=== PATIENT | female | born 1970 ===

== ENCOUNTER 2025-04-15 19:07 | Outpatient (REF) | payer OTHER, SELFPAY ==
--- OUTSIDE RECORDS SUMMARY | 2024-12-12 17:30 | XMS_ITS ---
Author Organization [facility] Address [address] [address] Care Team Providers Care General Internal Medicine Doctor Name Role Phone KIMBERLY MCPHERSON MD Primary Care Provider UnavailBrissa Javier Unavailable [phone] Migration, Provider Unavailable Unavailable REASON FOR VISIT Multum To Medispan Conversion Encounter Medications Medication SIG (Take, Route, Frequency, Duration) Notes Start Date End Date Status Clenpiq 12 G-3.5 G-10 MG/160 ML 160 ML ORALLY TWICE; Duration: 1 DAYS *Please review and pick correct strength-formulation from Medispan options. If intended option is not shown, discontinue and re-order from Quick Search* 01/06/2023 Active Clenpiq 12 G-3.5 G-10 MG/160 ML 160 ML ORALLY TWICE; Duration: 1 DAYS *Please review and pick correct strength-formulation from Medispan options. If intended option is not shown, discontinue and re-order from Quick Search* 03/05/2022 Active Encounters Encounter Location Date Provider Diagnosis [facility] [address] [address] 12/12/2024 Provider Migration Plan Of Treatment Medication Medication Name Sig Start Date Stop Date Notes Clenpiq 12 G-3.5 G-10 MG/160 ML 160 ML ORALLY TWICE; Duration: 1 DAYS 01/06/2023 *Please review and p ick correct strength-formulation from Medispan options. If intended option is not shown, discontinue and re-order from Quick Search* Clenpiq 12 G-3.5 G-10 MG/160 ML 160 ML ORALLY TWICE; Duration: 1 DAYS 03/05/2022 *Please review and p ick correct strength-formulation from Medispan options. If intended option is not shown, discontinue and re-order from Quick Search* Progress Notes * RAEANN TELLEZDOB:1970 ( 54 yo F)Acc No.[id number]:12/12/2024 Patient: RAEANN VÁZQUEZ Provider: :1970 A ge:54 Y S ex:Female Date:12/12/2024 Address:[address] [place], [place] [phone] Pcp:KIMBERLY MCPHERSON MD Subjective: * Chief Complaints: * 1 . Multum To Medispan Conversion Encounter. * Medical History: Objective: * Vitals: Assessment: Plan: * Treatment: * * Electronic signature of Prov ider Migration on 04/15/2025 at 09:25 AM EDT Sign off status: Pending * Provider: Date: 12/12/2024 Generated for Sabine garcia/Moy/Sarahysmitting on: 04/15/2025 09:25 AM EDT
--- OUTSIDE RECORDS SUMMARY | 2025-04-12 13:45 | XMS_ITS | Encounter Summary ---
Author Organization [facility] Address [address] [place] [address] Care Team Providers Care Case Sealer Name Role Phone Rachel Romo MD Primary Care Provider [phone] Reason for Visit * Reason Comments Post-op * Consultation (Routine) - Authorized Specialty Diagnoses / Procedures Referred By Contac t Referred To Contact Orthopedic Surgery / Orthopaedic Surgery Diagnoses left trimalleolar ankle ORIF (Dr. Candelaria 09/08/24), ED 03/26, I&D/AIDEN 03/26 (Felipe) per Dr. Wang Procedures [place] POST-OP FOLLOW-UP VISIT POST OP [facility] Financial Clearance Department [address] [place] [address] Phone: tel: fax: Darien Bush MD [address] [place] [phone] Phone: tel: fax: Referral ID Status Reason Start Date Expiration Date V isits Requested Visits Authorized [id number] Authorized 04/08/2025 04/07/2026 6 6 Encounter Details Date Type Department Care Team (Late st Contact Info) Description 04/12/2025 1:45 PM EDT Follow-Up [facility] [address] [place] [address] Eli Ba PA [address] [place] [address] Closed nondisplaced trimalleolar fracture of left ankle with routine healing, subsequent encounter (Primary Dx); Dehiscence of operative wound, subsequent encounter Social History Tobacco Use Types Packs/Day Years Used Date Smoking Tobacco: Never Smokeless Tobacco: Never Alcohol Use Standard Drinks/Week Comments Yes 2 (1 standard drink = 0.6 oz pur e alcohol) weekend Hunger Vital Sign Answer Date Recorded Within the past 12 months, y ou worried that your food would run out before you got the money to buy more. Never true 03/26/20 25 Within the past 12 months, t he food you bought just didn't last and you didn't have money to get more. Never true 03/26/2025 [facility] Utilities Answer Date Recorded In the past 12 months has th e electric, gas, oil, or water company threatened to shut off services in your home? No 03/26/2025 Transportation Answer Date Recorded In the past 12 months, has l ack of reliable transportation kept you from medical appointments, meetings, work or from getting things needed for daily living? No 03/26/2025 Housing Answer Date Recorded Housing Risk Low 2 03/26/2025 Housing Risk Medium Not on file 03/26/2025 Housing Risk High Not on file 03/26/2025 What is your living situation today? LSSTEADY 03/26/2025 Comments No Sex and Gender Information Value Date Recorded Sex Assigned at Female 11/19/2022 8:44 AM EDT Legal Sex Female 3:56 AM EDT Gender Identity Female 11/19/2022 8:44 AM EDT Sexual Orientation Straight 11/19/2022 8: 44 AM EDT documented as of this encounter Progress Notes * Lc Braxton MA - 04/12/2025 1:45 PM EDT Procedures Bianca Cantu : 1970 CSN: [id number] * Lc Braxton MA - 04/12/2025 1:45 PM EDTAssociated Order(s): Casting Pre-Procedure Diagnose(s): Closed nondisplaced trimalleolar fracture of left ankle with routine healing, subsequent encounter Casting Date/Time: 04/12/2025 1:45 PM Performed by: Lc Braxton MA Authorized by: Kenia Oneil NP Consent: Patient identity confirmed: Name and with patient and Verbally Verbal consent obtained: Yes Written consent obtained: No Risk and benefits discussed: Yes Written informed consent was obtained from the patient. Patient states understanding of procedure being performed: Yes Patient's understanding of procedure matches consent: Yes Injury: Location details: left lower leg Pre-procedure assessment neurovascularly intact Skin Assessment: Nikep/Warm/Dry, Intact and Circulation, Sensation, and Modility Intact Procedure: Manipulation performed? No Stress Test Performed: No Ultrasound Stimulation: No Removal of short leg Supplies used: cotton padding and plaster Post-procedure assessment: neurovascularly intact Patient tolerance: patient tolerated the procedure well with no immediate complications Bianca Cantu : 1970 CSN: [id number] * ZULAY James - 04/12/2025 1:33 PM EDT Date of Visit: 04/12/2025 Date of Surgery: 03/26/2025 Procedure: I&D and removal of hardware left ankle with Dr. Wang 09/08/2024-ORIF left trimalleolar ankle fracture with Dr. Candelaria History of Present Illness: Bianca Cantu is here today for evaluation after the above procedure. She presents today from home [facility] with her at bedside. Reports doing well after most recent surgery. Notes that she has continued on the aspirin twice daily for DVT prophylaxis, along with her Ancef for antibiotic treatment as prescribed. She notes she has maintained her weightbearing precautions, is hopeful that her wound VAC will be removed and inquires how her incision looks today. She reports her pain hasbeen well-tolerated. She otherwise inquires if she can return to work maintaining her weightbearingprecautions using the knee scooter. Denies fever, chills, cough, shortness of breath, chest pain, calf pain/tenderness. Denies numbness, paresthesias distally. Physical Exam: General: A&Ox 3, well appearing, NAD HEENT: NCAT, EOMI Pulm: respirations unlabored on room air Left ankle: Short leg splint removed for examination. Prevena VAC removed over the lateral incision, incision sites appear to be healing well. Lateral incision site appears to be mildly macerated, skin edges well-approximated. Medial incision site appears to be well-healed. No evidence of erythema,drainage, wound dehiscence, or signs of acute infection. Mild to moderate swelling about the ankle.Otherwise, skin is pink, warm, dry, and intact without lesions or rashes. No obvious visible deformity. Mildly tender to palpation over incision sites. Otherwise, bony landmarks of the foot, ankle, and knee are NT to palpation. Thigh and calf are soft, NT, ND. ROM of the ankle limited secondary to s tiffness. FROM of the knee. Wiggles toes. Presenting today on knee scooter. NVI with SILT throughout DP/SP/S/S nerve distributions. Brisk cap refill, less than 2 sec Imaging: Deferred Assessment + Plan: Bianca Cantu is here today for 2-week follow up after most recent I&D and removal of hardware left ankle with Dr. Wang for surgical site infection. Clinically appears to be doing well postoperatively. On exam, incisions over the medial portion appear well-healed. Sutures removed from the medial ankle. Incision over the lateral ankle appears mildly macerated, skin edges well-approximated. Eldena were left in place at this time to allow for continued healing. Patient was placed back into a short leg splint. We reviewed today's imaging and discussed the typical rehab plan/prognosis in detail. Deep Vein Thrombosis Prophylaxis: The patient should remain on aspirin 81mg BID for a total of 12 weeks after surgery to prevent blood clots Weightbearing Instructions: Patient is NWB LLE in splint Physical Therapy: Deferred at this time Continue cefazolin as prescribed for antibiotic treatment Pain: We discussed continuing to manage their pain with over the counter pain medication (acetaminophen and ibuprofen) as needed. Return to clinic: 1 week for splint off, skin check, no x-rays at that time documented in this encounter Plan of Treatment Upcoming Encounters Date Type Department Care Team (Late st Contact Info) Description 04/20/2025 3:30 PM EDT Follow-Up [facility] [address] [place] [address] Eli Ba PA [address] [place] [phone] 04/23/2025 1:00 PM EDT Follow-Up [facility] [address] [place] [address] Sage Candelaria MD [address] [place] [address] 04/26/2025 3:45 PM EDT Office Visit [facility] storage battery charger [address] [place] [phone] Eli Leo MD [address] [place] [address] documented as of this encounter Procedures * Due to [place] state law, this organization might not be sharing negative HIV tests. Procedure Name Priority Date/Time Associated Diagnosis Comments HC SC SHORT LEG SPLINT Routine 04/12/2025 1:45 PM EDT Closed nondisplaced trimalleolar fracture of left ankle with routine healing, subsequent encounter [place] REMV/REVISN BOOT/BODY CAST Routine 04/12/2025 1:45 PM EDT Closed nondisplaced trimalleolar fracture of left ankle with routine healing, subsequent encounter documented in this encounter Visit Diagnoses Diagnosis Closed nondisplaced trimalleolar fracture of left ankle with routine healing, subsequent encounter- Primary Dehiscence of operative wound, subsequent encounter documented in this encounter Care Teams Case Sealer Relationship Specialty Start Date End Date Rachel Romo MD [address] [place] [phone] PCP - General Family Medicine 08/02/21 documented as of this encounter
--- OUTSIDE RECORDS SUMMARY | 2025-04-15 09:30 | XMS_ITS | Encounter Summary ---
Author Organization [facility] Address [address] [place] [address] Care Team Providers Care Marker Delivery Name Role Phone Rachel Romo MD Primary Care Provider [phone] Reason for Visit * Consultation (Routine) - Authorized Specialty Diagnoses / Procedures Referred By Contac t Referred To Contact Infectious Diseases Diagnoses FU inpt-left ankle hardware infection [facility] [address] [place] [address] Phone: tel: fax: Referral ID Status Reason Start Date Expiration Date V isits Requested Visits Authorized [id number] Authorized 04/12/2025 10/12/2026 6 6 Encounter Details Date Type Department Care Team (Late st Contact Info) Description 04/15/2025 9:30 AM EDT Telehealth [facility] [address] [place] [address] Sql Application Developer: [place] [address] Subacute osteomyelitis of left ankle (HCC) (Primary Dx) Social History Tobacco Use Types Packs/Day Years [...] money to get more. Never true 03/26/2025 [facility] Utilities Answer Date Recorded In the [...] as of this encounter Progress Notes * Papito Gayle MD - 04/15/2025 6:01 PM EDT Infectious Disease Outpatient Follow-Up Date of service: 04/15/25 Reason for follow-up: Left ankle hardware infection/osteomyelitis I performed this visit using real-time telehealth tools, including a live audio video connection between my office in [place] and the patient's location. The patient requested/scheduled this visit. Other people who participated in the telehealth visit: Dr. Shanell Ansari, ID attending.. Prior to beginning the telehealth visit, the patient's informed verbal consent to perform this visit us ing telehealth tools was obtained. I am comfortable that this visit could be performed effectively using telehealth tools. The patient's history and medical records were reviewed. I have informed the patient that in the case they felt that they needed to be seen in person, that an in person visit could be arranged. Interval history: OR cultures grew MSSA, she was discharged on IV cefazolin 2 g every 8 hourly. Sheis taking her medication regularly and tolerating it without any side effects or toxicity. Her creatinine is 0.7, WBC count is 7.3, ALT is 6 and AST is 18. She states that she is taking gabapentin regularly and has no pain in ankle. Subjective: She feels better, has no active complaints. Review of systems: All other components of the review of systems are negative, except those described above. Medications: Current Outpatient Medications Medication Instructions ascorbic acid (VITAMIN C) 500 mg, Daily aspirin 81 mg, oral, 2 times daily ceFAZolin (ANCEF) 2 gram/100 mL piggyback 2 g, intravenous, Every 8 hours scheduled docusate sodium (COLACE) 100 mg, oral, 2 times daily ferrous sulfate (IRON ORAL) Take by mouth. fish oil 340-1,000 mg capsule 1,000 mg, Daily fluocinonide (LIDEX) 0.05% solution SMARTSIG:Topical As Directed gabapentin (NEURONTIN) 100 mg, oral, 3 times daily ibuprofen (MOTRIN) 600 mg, oral, Every 6 hours PRN ketoconazole (NIZORAL) 2% shampoo PLEASE SEE ATTACHED FOR DETAILED DIRECTIONS loratadine (CLARITIN) 10 mg, Daily multivitamin (THERAGRAN) tablet 1 tablet, Daily norethindrone (AYGESTIN) 5 mg, oral, Daily omeprazole (PRILOSEC) 20 mg, oral, Daily senna 8.6 mg, oral, Nightly Vitamin D3 25 mcg (1,000 unit) capsule 1 capsule, Daily Allergies: Allergies Allergen Reactions Tree Nut Itching Physical Exam: There were no vitals filed for this visit. General appearance: No acute distress, well nourished HEENT: Normocephalic, atraumatic, no icterus or conjunctival erythema Neck: Supple Lungs: No respiratory distress Abdomen: Soft, non-distended, non-tender MSK: No obvious abnormality Extremities: Left ankle wrapped in dressing Neuro: Alert and oriented, no focal deficits Psych: Normal mood and affect Laboratory data: I have independently reviewed all recent lab results; including all microbiological data and culture results from previous years. Microbiology data: No new micro data Radiology: I have reviewed all recent imagining data available independently. Impression: Bianca Cantu is a 54 y.o. female with trimalleolar fracture of the left ankle in September 2024 with surgical repair, presented to the ED with dehiscence of the lateral wound and purulent drainage. Hardware removal was done and cultures were sent which showed MSSA so antibiotics were switched to IV cefazolin. Plan is to complete 6 weeks of antibiotics from 03/26/2025. Recommendations: Continue IV cefazolin 2 g every 8 hourly till 05/06/2025 Check CBC with differential, CMP once a week and fax report to [phone] Taper and gradually stop tablet gabapentin as per pain intensity. PICC line can be removed after completion of antibiotic therapy on 05/06/2025. Papito Gayle MD Fellow Division of Infectious Diseases Bianca Cantu : 1970 CSN: [id number] documented in this encounter Plan of Treatment Upcoming Encounters Date Type Department Care Team (Late st Contact Info) Description 04/20/2025 3:30 PM EDT Follow-Up [facility] [address] [place] [address] Eli Ba PA [address] [place] [address] 04/23/2025 1:00 PM EDT Follow-Up [facility] [address] [place] [address] Sage Candelaria MD [address] [place] [address] 04/26/2025 3:45 PM EDT Office Visit [facility] wellness manager [address] [place] [address] Eli Leo MD [address] [place] [address] documented as of this encounter Visit Diagnoses Diagnosis Subacute osteomyelitis of left ankle (HCC)- Primary documented in this encounter Care Teams Marker Delivery Relationship Specialty Start Date End Date Rachel Romo MD [address] [place] [phone] PCP - General Family Medicine 08/02/21 documented as of this encounter
--- OUTSIDE RECORDS SUMMARY | 2025-04-15 19:19 | XMS_ITS | Encounter Summary ---
Author Organization [facility] Address [address] [place] [address] Care Team Providers Care Turn Down Worker Name Role Phone Rachel Romo MD Primary Care Provider [phone] Encounter Details Date Type Department Care Team (Late st Contact Info) Description 04/12/2025 Orders Only [facility] [address] [place] [address] Teleradiologist: [place] [address] Social History Tobacco Use Types Packs/Day Years [...] money to get more. Never true 03/26/2025 [facility] Utilities Answer Date Recorded In [...] AM EDT documented as of this encounter Plan of Treatment Upcoming Encounters Date Type Department Care Team (Late st Contact Info) Description 04/20/2025 3:30 PM EDT Follow-Up [facility] [address] [place] [address] Eli Ba PA [address] [place] [address] 04/23/2025 1:00 PM EDT Follow-Up [facility] [address] [place] [address] Sage Candelaria MD [address] [place] [address] 04/26/2025 3:45 PM EDT Office Visit [facility] continuous improvement intern [address] [place] [phone] Eli Leo MD [address] [place] [address] documented as of this encounter Procedures * Due to [place] [employer] law, this organization might not be sharing negative HIV tests. Procedure Name Priority Date/Time Associated Diagnosis Comments COMPREHENSIVE METABOLIC PANEL, OUTSIDE LAB Routine 04/09/2025 8:40 AM EDT CBC AUTO DIFFERENTIAL, OUTSIDE LAB Routine 04/09/2025 8:40 AM EDT documented in this encounter Results * Due to [place] [employer] law, this organization might not be sharing negative HIV tests. * Comprehensive Metabolic Panel, Outside Lab (04/09/2025 8:40 AM EDT) Blood Structure of peripheral vein / Unknown us Papito Gayle MD LAB BLOOD ORDERABLES Final Resul t * CBC Auto Differential, Outside Lab (04/09/2025 8:40 AM EDT) Blood Structure of peripheral vein / Unknown us Papito Gayle MD LAB BLOOD ORDERABLES Final Resul t documented in this encounter Visit Diagnoses Not on filedocumented in this encounter Care Teams Turn Down Worker Relationship Specialty Start Date End Date Rachel Romo MD [address] [place] [phone] PCP - General Family Medicine 08/02/21 documented as of this encounter
--- OUTSIDE RECORDS SUMMARY | 2025-04-15 19:19 | XMS_ITS | Clinical Summary ---
Author Organization [facility] Address [address] [place] [address] Care Team Providers Care Mammal Control Agent Name Role Phone Rachel Romo MD Primary Care Provider Allergies Active Allergy Reactions Criticality Noted Date Comments Tree Nut Itching 02/21/2023 Medications ketoconazole (NIZORAL) 2% shampoo PLEASE SEE ATTACHED FOR DETAILED DIRECTIONS 023 Active multivitamin (THERAGRAN) tablet Take 1 tablet by mouth once a day. Active fish oil 340-1,000 mg capsule Take 1,000 mg by mouth once a day. Active loratadine (CLARITIN) 10 mg tablet Take 10 mg by mouth once a day. Active ferrous sulfate (IRON ORAL) Take by mouth. Act vincent fluocinonide (LIDEX) 0.05% solution SMARTSIG:Topical As Directed 024 Active norethindrone (AYGESTIN) 5 mg tablet Take 1 tablet (5 mg total) by mouth once a day. 90 tablet 3 025 Active ascorbic acid (VITAMIN C) 500 mg tablet Take 500 mg by mouth once a day. Active Vitamin D3 25 mcg (1,000 unit) capsule Take 1 capsule by mouth once a day. Active docusate sodium (COLACE) 100 mg capsule Take 1 capsule (100 mg total) by mouth 2 times a day for 10 days. 20 capsule 5 5:17 PM EDT 025 Active aspirin 81 mg EC tablet Take 1 tablet (81 mg total) by mouth 2 times a day. 180 tablet 5 5:17 PM EDT 2024 Active senna (SENOKOT) 8.6 mg tablet Take 1 tablet (8.6 mg total) by mouth nightly for 10 days. 10 tablet 5:17 PM EDT Active ibuprofen (MOTRIN) 600 mg tablet Take 1 tablet (600 mg total) by mouth every 6 hours as needed for pain. Active gabapentin (NEURONTIN) 100 mg capsule Take 1 capsule (100 mg total) by mouth 3 times a day. 90 capsule 5:17 PM EDT 2024 Active omeprazole (PriLOSEC) 20 mg capsule Take 1 capsule (20 mg total) by mouth once a day. 2024 Active ceFAZolin (ANCEF) 2 gram/100 mL piggyback Infuse 100 mL (2 g total) intravenously every 8 hours. 2024 Active doxycycline monohydrate (MONODOX) 100 mg capsuleIndicati ons:Closed nondisplaced trimalleolar fracture of left ankle with routine healing, subsequent encounter Take 1 capsule (100 mg total) by mouth 2 times a day for 14 days. 28 capsule 2024 acetaminophen (TYLENOL) 325 mg tablet Take 2 tablets (650 mg total) by mouth every 6 hours for 7 days. 56 tablet 5:17 PM EDT 2024 ceFAZolin (ANCEF) 2 gram/100 mL piggyback Infuse 100 mL (2 g total) intravenously every 8 hours. 35506 mL 2024 Discontinued oxyCODONE IR (ROXICODONE) 5 mg tablet Take 1-2 tablets (5-10 mg total) by mouth every 4 hours as needed for breakthrough pain for up to 7 days. Max Daily Amount: 60 mg / 12 tablets 40 tablet 5:17 PM EDT 2024 Active Problems Problem Noted Date Diagnosed Date Acute left ankle pain 03/26/2025 Closed trimalleolar fracture of ankle, left, initial encounter 09/04/2024 Abnormal uterine bleeding (AUB) 12/14/2022 Encounters Date Type Department Care Team Description 04/15/2025 9:30 AM EDT Telehealth [facility] Disease [facility] [address] [place] [id number] Profiling Machine Setup Operator: Papito Felix MD Subacute osteomyelitis of left ankle (HCC) (Primary Dx) 04/12/2025 1:45 PM EDT Follow-Up [facility] [address] [place] [id number] Eli Ba PA Closed nondisplaced trimalleolar fracture of left ankle with routine healing, subsequent encounter (Primary Dx); Dehiscence of operative wound, subsequent encounter 04/12/2025 Orders Only [facility] Outpatient [address] [address] Profiling Machine Setup Operator: Papito Felix MD 03/26/2025 7:45 AM EDT - 03/26/2025 10:00 AM EDT Surgery [facility] Operating Room [address] [place] [id number] Katrina Wang MD ANKLE REMOVAL OF HARDWARE, IRRIGATION AND DEBRIDEMENT, ALL INDICATED PROCEDURES [71589 (CPT )] 03/26/2025 7:33 AM EDT Anesthesia Event [facility] Operating Room [address] [place] [id number] Ganga Arias MD Troshin, Vladislav I., DM 03/25/2025 11:50 PM EDT - 03/30/2025 7:27 PM EDT Hospital Encounter [facility] [address] [place] [address] Bennett Kerr MD Bub, Christine D, MD Closed trimalleolar fracture of ankle, left, initial encounter (Primary Dx); Acute left ankle pain Discharge Disposition: Home with Services (06) 03/25/2025 Telephone [facility] [address] [place] [address] Shawnee Villeda RN 03/25/2025 myChart Message [facility] [address] [place] [address] Kenia Oneil, CARDIAC SURGEON Ankle Today 03/25/2025 Telephone [facility] [address] [place] [address] Kenia Oneil LManuel, CARDIAC SURGEON 03/25/[address] [facility] Interventional Radiology [address] [place] [phone] Kamaljit Mejia MD 03/24/2025 2:40 PM EDT Follow-Up [facility] [address] [place] [phone] Kenia Oneil, CARDIAC SURGEON Closed nondisplaced trimalleolar fracture of left ankle with routine healing, subsequent encounter (Primary Dx); Dehiscence of operative wound, subsequent encounter; Cellulitis of left lower extremity 03/24/2025 Telephone [facility] [address] [place] [phone] Kenia Oneil LManuel, CARDIAC SURGEON 03/24/2025 Orders Only [facility] Podiatry [address] [place] [address] Profiling Machine Setup Operator: Kenia Velazquez, CARDIAC SURGEON Closed nondisplaced trimalleolar fracture of left ankle with routine healing, subsequent encounter (Primary Dx) 03/24/2025 myChart Message [facility] [address] [place] [phone] Quincy Oneilyssa L., CARDIAC SURGEON Ankle Irritated 02/22/2025 2:40 PM EDT Follow-Up [facility] [address] [place] [address] Kenia Oneil NP Closed nondisplaced trimalleolar fracture of left ankle with routine healing, subsequent encounter (Primary Dx) 01/29/2025 10:00 AM EDT Follow-Up [facility] [address] [place] [address] Kenia Oneil NP Closed nondisplaced trimalleolar fracture of left ankle with routine healing, subsequent encounter (Primary Dx); Dehiscence of operative wound, subsequent encounter 01/28/2025 Orders Only [facility] [address] [place] [address] Carol Logan CMA Closed fracture of left ankle with routine healing, subsequent encounter (Primary Dx) 01/25/2025 Refill [facility] criminal justice program director [address] [place] [phone] Eli Leo MD from Last 3 Months Family History Medical History Relation Name Comments Prostate cancer Father Uterine cancer Mother Breast cancer Paternal Grandmother Relation Name Status Comments Father Alive Mother Alive Paternal Grandmother Social History Tobacco Use Types Packs/Day Years Used Date Smoking Tobacco: Never Smokeless Tobacco: Never Tobacco Cessation:Counseling Given: Not Answered Alcohol Use Standard Drinks/Week Comments Yes 2 [...] money to get more. Never true 03/26/2025 [facility] Utilities Answer Date Recorded In the past 12 months has e electric, gas, oil, or water company [...] Orientation Straight 11/19/2022 8: 44 AM EDT Last Filed Vital Signs Vital Sign Reading Time Taken Comments Blood Pressure 132/87 03/30/2025 7:00 PM EDT Pulse 75 03/30/2025 7:00 PM EDT Temperature 36.7 C (98.1 F) 03/30/2025 7:00 PM EDT Respiratory Rate 18 03/30/2025 7:00 PM EDT Oxygen Saturation 96% 03/30/2025 7:00 PM EDT Inhaled Oxygen Concentration - - Weight 70.3 kg (155 lb) 03/26/2025 6:47 AM EDT Height 167.6 cm (5' 6 ) 03/26/2025 6:47 AM EDT Body Mass Index 25.02 03/26/2025 6:47 AM EDT Plan of Treatment Upcoming Encounters Date Type Department Care Team (Late st Contact Info) Description 04/20/2025 3:30 PM EDT Follow-Up [facility] [address] [place] [address] Eli Ba PA [address] [place] [address] 04/23/2025 1:00 PM EDT Follow-Up [facility] [address] [place] [address] Sage Candelaria MD [address] [place] [address] 04/26/2025 3:45 PM EDT Office Visit [facility] criminal justice program director [address] [place] [address] Eli Leo MD [address] [place] [address] Health Maintenance Due Date Last Done Comments Cologuard 1969 Colon Cancer Screening 1969 Colonoscopy 1969 FOBT / Fit Test 1969 HIV Screening 1969 Hepatitis C Screening 1969 Sigmoidoscopy 1969 Hepatitis B Vaccines (1 of 3 - 19+ 3-dose series) 1988 Pneumococcal Vaccine: 50+ Ye ars (1 of 1 - PCV) 12/02/2019 Zoster Vaccines (1 of 2) 12/02/2019 Mammogram 2023 11/30/2021, 11/17/2020 Alcohol/Substance Use Screening 08/05/2024 Depression Screening and Follow-Up 08/05/2024 COVID-19 Vaccine (5 - 2024-2 6 season) 2025 03/30/2022, 11/20/2020, 10/22/2020, Additional history exists Influenza Vaccine (#1) 2025 , 08/11/2019, 07/15/2018, Additional history exists Social Drivers of Health Barbara ual Screening 03/26/2026 03/26/2025 Pap Smear 02/09/2027 02/10/2024, 0402/2023, 06/18/2006, Additional history exists Diabetes Screening 04/09/2028 04/09/2025, 0 03/29/2025, 03/27/2025, Additional history exists Cervical Cancer Screening 02/09/2029 HPV and Pap Smear 02/09/2029 02/10/2024, , 06/18/2006, Additional history exists DTaP,Tdap,and Td Vaccines (3 - Td or Tdap) 11/01/2030 11/01/2020, 10/03/2010, 04/19/1999 RSV Vaccine (60+ years old a nd patients) (1 - 1-dose 75+ series) 2044 Procedures * Due to [place] state law, this organization might not be sharing negative HIV tests. Procedure Name Priority Date/Time Associated Diagnosis Comments HC SC SHORT LEG SPLINT Routine 04/12/2025 1:45 PM EDT Closed nondisplaced trimalleolar fracture of left ankle with routine healing, subsequent encounter ME REMV/REVISN BOOT/BODY CAST Routine 04/12/2025 1:45 PM EDT Closed nondisplaced trimalleolar fracture of left ankle with routine healing, subsequent encounter CBC AUTO DIFFERENTIAL, OUTSIDE LAB Routine 04/09/2025 8:40 AM EDT COMPREHENSIVE METABOLIC PANEL, OUTSIDE LAB Routine 04/09/2025 8:40 AM EDT [facility] IV CHEMICAL WORKER PICC Routine 03/30/2025 1:10 PM EDT VANCOMYCIN, TROUGH Timed 03/30/2025 7: 48 AM EDT BASIC METABOLIC PANEL STAT 03/29/2025 8:15 AM EDT VANCOMYCIN, TROUGH Timed 03/28/2025 11 :30 PM EDT VANCOMYCIN, TROUGH Timed 03/27/2025 11 :33 PM EDT BASIC METABOLIC PANEL Routine 03/27/2025 4:23 AM EDT CBC Routine 03/27/2025 4:23 AM EDT XR ANKLE 3+ VW LEFT Routine 03/26/2025 1 2:44 PM EDT PERIPHERAL NERVE BLOCK Routine 03/26/2025 11:10 AM EDT FL C-ARM WITH IMAGES NONREPORTABLE Routine 03/26/2025 8:43 AM EDT OR/IR ANAEROBIC SURGICAL CULTURE W/GRAM STAIN Routine 03/26/2025 8:24 AM EDT Closed trimalleolar fracture of ankle, left, initial encounter OR/IR AEROBIC SURGICAL CULTURE Routine 03/26/2025 8:24 AM EDT Closed trimalleolar fracture of ankle, left, initial encounter OR/IR SURGICAL CULTURE (AEROBIC/ANAEROBIC W/GRAM STAIN) Routine 03/26/2025 8:24 AM EDT Closed trimalleolar fracture of ankle, left, initial encounter MYCOBACTERIA/AFB CULTURE AND STAIN Routine 03/26/2025 8:24 AM EDT Closed trimalleolar fracture of ankle, left, initial encounter FUNGUS CULTURE W/STAIN Routine 03/26/2025 8:24 AM EDT Closed trimalleolar fracture of ankle, left, initial encounter OR/IR ANAEROBIC SURGICAL CULTURE W/GRAM STAIN Routine 03/26/2025 8:17 AM EDT Closed trimalleolar fracture of ankle, left, initial encounter OR/IR AEROBIC SURGICAL CULTURE Routine 03/26/2025 8:17 AM EDT Closed trimalleolar fracture of ankle, left, initial encounter OR/IR SURGICAL CULTURE (AEROBIC/ANAEROBIC W/GRAM STAIN) Routine 03/26/2025 8:17 AM EDT Closed trimalleolar fracture of ankle, left, initial encounter MYCOBACTERIA/AFB CULTURE AND STAIN Routine 03/26/2025 8:17 AM EDT Closed trimalleolar fracture of ankle, left, initial encounter FUNGUS CULTURE W/STAIN Routine 03/26/2025 8:17 AM EDT Closed trimalleolar fracture of ankle, left, initial encounter OR/IR ANAEROBIC SURGICAL CULTURE W/GRAM STAIN Routine 03/26/2025 8:16 AM EDT Closed trimalleolar fracture of ankle, left, initial encounter OR/IR AEROBIC SURGICAL CULTURE Routine 03/26/2025 8:16 AM EDT Closed trimalleolar fracture of ankle, left, initial encounter OR/IR SURGICAL CULTURE (AEROBIC/ANAEROBIC W/GRAM STAIN) Routine 03/26/2025 8:16 AM EDT Closed trimalleolar fracture of ankle, left, initial encounter MYCOBACTERIA/AFB CULTURE AND STAIN Routine 03/26/2025 8:16 AM EDT Closed trimalleolar fracture of ankle, left, initial encounter FUNGUS CULTURE W/STAIN Routine 03/26/2025 8:16 AM EDT Closed trimalleolar fracture of ankle, left, initial encounter TISSUE EXAM Routine 03/26/2025 8:10 AM EDT Closed trimalleolar fracture of ankle, left, initial encounter ME REMOVAL DEEP IMPLANT 03/26/2025 7:20 AM EDT Closed trimalleolar fracture of ankle, left, initial encounter TYPE AND SCREEN STAT 03/26/2025 4:41 AM EDT PROTIME-INR Timed 03/26/2025 4:41 AM EDT AEROBIC CULTURE W/GRAM STAIN STAT 03/26/2025 2:02 AM EDT MRSA/S AUREUS PCR, NASAL STAT 03/26/2025 12:51 AM EDT C-REACTIVE PROTEIN STAT 03/26/2025 12 :51 AM EDT SEDIMENTATION RATE, AUTOMATED STAT 03/26/2025 12:51 AM EDT BASIC METABOLIC PANEL STAT 03/26/2025 12:51 AM EDT CBC AUTO DIFFERENTIAL STAT 03/26/2025 12:51 AM EDT XR ANKLE 3+ VW LEFT WEIGHT BEARING Routine 03/24/2025 3:08 PM EDT Closed nondisplaced trimalleolar fracture of left ankle with routine healing, subsequent encounter XR ANKLE 3+ VW LEFT WEIGHT BEARING Routine 01/29/2025 9:58 AM EDT Closed fracture of left ankle with routine healing, subsequent encounter [facility] PAP W/HPV, MRNA E6/E7, REFLEX 16/18/45 Routine 02/10/2024 4:06 PM EDT Screening for cervical cancer from Last 3 Months or Most Recently Relevant to Health Maintenance Results * Due to [place] state law, this organization might not be sharing negative HIV tests. * ME REMV/REVISN BOOT/BODY CAST, HC SC SHORT LEG SPLINT (04/12/2025 1:45 PM EDT) Narrative Lc Braxton MA - 04/12/2025 1:45 PM EDT Lc Braxton MA 04/12/2025 2:21 PM Casting Date/Time: 04/12/2025 1:45 PM Performed by: [...] leg Pre-procedure assessment neurovascularly intact Skin Assessment: [place]/Warm/Dry, Intact and Circulation, Sensation, and Modility Intact Procedure: Manipulation performed? No Stress Test Performed: No Ultrasound Stimulation: No Removal of short leg Supplies used: cotton padding and plaster Post-procedure assessment: neurovascularly intact Patient tolerance: patient tolerated the procedure well with no immediate complications Kenia Oneil CARDIAC SURGEON CASTING ORDERABLES Final Resul t * Comprehensive Metabolic Panel, Outside Lab (04/09/2025 8:40 AM EDT) Blood Structure of peripheral vein / Unknown Papito Gayle MD LAB BLOOD ORDERABLES Final Resul t * CBC Auto Differential, Outside Lab (04/09/2025 8:40 AM EDT) Blood Structure of peripheral vein / Unknown us Papito Gayle MD LAB BLOOD ORDERABLES Final Resul t * CONTINUOUS MINING MACHINE OPERATOR PICC and Midline (03/30/2025 1:10 PM EDT) Bernard Prince RN - 03/30/2025 1:10 PM EDT Bernard Eagle RN 03/30/2025 1:21 PM PICC line insertion Date/Time: 03/30/2025 1:10 PM Performed by: Bernard Eagle RN Provider type: External RN Vendor Reason for Insertion: intravenous antibiotics Successful placement: yes [place] Protocol Patient identity confirmed: Name and with patient Written consent obtained?: yes Procedure consent matches procedure to be performed: Yes All relevant documents/tests are correctly identified, labeled, and matched to patient: Yes Relevant tests/ Imaging studies available/reviewed: Yes Correct site marked: Yes Required blood products, implants, devices and special equipment available: Yes Immediately prior to the procedure a time out was called: Yes Pre-Procedure Central Line Bundle Sterile barrier technique: All Elements of full barrier protection used Skin preparation: ChloraPrep Ultrasound: Sterile sheath and gel used Site Assessment Vein Accessed: Left deep brachial Initial Arm Circumference (cm): 30 Procedure Details Local Anesthetic: Injectable Ultrasound guidance: yes Number of attempts: 1 Blood return in all lumens?: Yes All lumens flush freely?: Yes Catheter Secured: Catheter securement device Device Details Catheter Type: Bard PowerPICC Sherlock ECG Tip Catheter Lumens: Double lumen Catheter Size (fr): 5 Lot #: [id number] Catheter Total Length (cm): 40 Catheter External Length (cm): 0 Catheter to Vessel Ratio (%): 40 Post-Procedure Central Line Bundle Guidewire Removal Confirmed?: Yes All Ports Capped?: Yes Verification of Line Placement: ECG guidance system Dressing Applied: Antimicrobial and Transparent Post-Procedure Details Patient tolerance of procedure: Tolerated well, no immediate complications Significant events: None Plan: PICC line ready for immediate use us Katrina Wang MD IV THERAPY ORDERABLES Final R esult * Vancomycin, Trough (03/30/2025 7:48 AM EDT) Only the most recent of3 resultswithin the time period is included. Vancomycin Trough 18.3 10.0 - 20.0 ug/mL 03/30/2025 8:33 AM EDT [facility] Comment: Before interpreting a drug level, check the time the dose was given in the MAR to ensure the level was drawn appropriately. 10-15 ug/mL: Empiric/Mild infections 15-20 ug/mL: Severe MRSA infection (pneumonia, meningitis, endocarditis) Blood Structure of peripheral vein / Unknown Venipuncture / Unknown 03/30/2025 7:48 AM EDT 03/30/2025 7:53 AM EDT us Katrina Wang MD LAB BLOOD ORDERABLES Final Re sult [facility] [address] [place] [address], * Basic metabolic panel (03/29/2025 8:15 AM EDT) Only the most recent of3 resultswithin the time period is included. NA 138 135 - 145 mmol/L 03/29/2025 9:18 AM EDT [facility] K 4.1 3.5 - 5.3 mmol/L 03/29/2025 9:18 AM EDT [facility] Cl 101 98 - 107 mmol/L 03/29/2025 9:18 AM EDT [facility] CO2 23 22 - 32 mmol/L 03/29/2025 9:18 AM EDT [facility] BUN 14 7 - 23 mg/dL 03/29/2025 9:18 AM EDT [facility] Creatinine 0.72 0.50 - 1.20 mg/dL 03/29/2025 9:18 AM EDT [facility] Glucose 95 65 - 99 mg/dL 03/29/2025 9:18 AM EDT [facility] Calcium 9.7 8.6 - 10.5 mg/dL 03/29/2025 9:18 AM EDT [facility] Anion Gap 14 5 - 15 03/29/2025 9:18 AM EDT [facility] eGFR >90 >=60 mL/min/1. 73m2 03/29/2025 9:18 AM EDT [facility] Comment:The estimated glomer ular filtration rate (eGFR) is calculated using a new formula developed by the NKF-ASN task force to eliminate race-based correction factors. The new formula uses serum/plasma creatinine, age, and gender to determine eGFR. A value below 60mls/min might indicate kidney disease and will be flagged. For additional information, see Maranda et al, Am J Kidney Dis. 2021;79(2):268- 288, A Unifying Approach for GFR estimation: Recommendations of the NKF-ASN Task Force on Reassessing the Inclusion of Race in Diagnosing Kidney Disease . Blood Structure of peripheral vein / Unknown Venipuncture / Unknown 03/29/2025 8:15 AM EDT 03/29/2025 8:42 AM EDT us Katrina Wang MD LAB BLOOD ORDERABLES Final Re sult [facility] [address] [place] [address], * (ABNORMAL) CBC (03/27/2025 4:23 AM EDT) WBC 10.7 3.8 - 10.8 10*3/uL 03/27/2025 5:55 AM EDT [facility] RBC 3.36(L) 3.80 - 5.10 10*6/uL 03/27/2025 5:55 AM EDT [facility] Hemoglobin 11.5(L) 11.7 - 15.5 g/dL 03/27/2025 5:55 AM EDT [facility] Hematocrit 33.9(L) 35.0 - 45.0 % 03/27/2025 5:55 AM EDT [facility] MCV 100.9(H) 80.0 - 100.0 fL 03/27/2025 5:55 AM EDT [facility] MCH 34.2(H) 27.0 - 33.0 pg 03/27/2025 5:55 AM EDT [facility] MCHC 33.9 32.0 - 36.0 g/dL 03/27/2025 5:55 AM EDT [facility] RDW 14.1 11.0 - 15.0 % 03/27/2025 5:55 AM EDT [facility] Platelets 399 140 - 400 10*3/uL 03/27/2025 5:55 AM EDT [facility] MPV 9.1 7.5 - 12.5 fL 03/27/2025 5:55 AM EDT [facility] Blood Structure of peripheral vein / Unknown Venipuncture / Unknown 03/27/2025 4:23 AM EDT 03/27/2025 4:59 AM EDT Katrina Wang MD LAB BLOOD ORDERABLES Final Re sult [facility] [address] [place] [address], [place] * XR Ankle 3+ vw Left (03/26/2025 12:44 PM EDT) Anatomical Region Laterality Modality Lower Extremities, Ankle Left Compute d Radiography 03/26/2025 3:26 PM EDT Impressions 03/26/2025 3:27 PM EDT 1. Surgical changes status post removal of hardware from the distal fibula and distal tibia. No immediate applications. 2. No acute fracture. No acute traumatic malalignment. 3. Degenerative changes: No joint space narrowing. 4. Normal variants: None. 5. Plantar calcaneal enthesophyte. If this radiology report contains a blank impression section, it is an incomplete radiology report. Please contact the interpreting radiologist or applicable radiology division as soon as possible to obtain the completed interpretation. Workstation ID: [id number] Narrative 03/26/2025 3:27 PM EDT XR ANKLE 3+ VW LEFT INDICATION: POST OP AIDEN COMPARISON: 03/24/2025 - left ankle XR LIMITATIONS: Overlaying plaster splinting material obscures fine bony detail. FINDINGS AND Resulting Agency Comment [id number] Procedure Note Duke Claudio MD - 03/26/2025 XR ANKLE 3+ VW LEFT INDICATION: POST OP AIDEN COMPARISON: 03/24/2025 - left ankle XR LIMITATIONS: Overlaying plaster splinting material obscures fine bony detail. FINDINGS AND IMPRESSION: 1. Surgical changes status post removal of hardware from the distalfibula and distal tibia. No immediate applications. 2. No acute fracture. No acute traumatic malalignment. 3. Degenerative changes: No joint space narrowing. 4. Normal variants: None. 5. Plantar calcaneal enthesophyte. If this radiology report contains a blank impression section, it is anincomplete radiology report. Please contact the interpreting radiologistor applicable radiology division as soon as possible to obtain thecompleted interpretation. Workstation ID: [id number] us Katrina Wang MD IMG XR PROCEDURES Final Resul t * Peripheral Block (03/26/2025 11:10 AM EDT) Narrative Ganga Arias MD - 03/26/2025 11:10 AM EDT Ganga Arias MD 03/26/2025 12:07 PM Peripheral Nerve Block Patient Location at Time of Procedure: post-op Start Date/Time: 03/26/2025 11:10 AM End Date/Time: 03/26/2025 11:19 AM Reason for block: post-op pain management Anesthesia Staff Authorized by: Ganga Arias MD Performed by: Fabrizio Jewell DOAnesthesiologist: Mary Jenkins MD Resident: Fabrizio Jewell DO Other anesthesia staff: Tamir Ramirez MD Performed: resident and other anesthesia staff I was not present but was immediately available. Preanesthesic Checklist 2 patient identifiers IV checked site marked risks and benefits discussed monitors and equipment checked pre-op evaluation anesthesia consent all elements of maximal sterile barrier technique followed patient position confirmed timeout performed Peripheral Block Ultrasound #1 Probe: Linear [id number] Patient position: supine Prep: ChloraPrep Patient monitoring: heart rate, continuous pulse oximetry and NIBP Block type: adductor canal block Laterality: left Injection technique: single-shot Number of attempts: 1 Procedures: ultrasound guided/images retained Injection Pressure Monitor (B-Smart) applied with standardized injection force <15 psi: Yes Local infiltration: lidocaine Infiltration strength: 1 % Dose: 2 mL Medications Given: ropivacaine PF (NAROPIN) 0.5% (5 mg/mL) injection - peripheral nerve block 30 mL - 03/26/2025 11:10:00 AM lidocaine PF 1 % injection vial - peripheral nerve block 4 mL - 03/26/2025 11:10:00 AM dexAMETHasone (DECADRON) injection - peripheral nerve block 4 mg - 03/26/2025 11:10:00 AM Needle - Block 1: Needle type: Pajunk Needle gauge: 21 G Needle length: 10 cm Needle localization: ultrasound guidance Additional Peripheral Nerve Block? yes Patient position: supine Prep: ChloraPrep Patient monitoring: heart rate, court monitor and continuous pulse ox Block type: popliteal Laterality: left Injection technique: single-shot Number of attempts: 1 Procedures: ultrasound guided/images retained Local infiltration: lidocaine Infiltration strength: 1 % Dose: 2 mL Needle - Block 2: Needle type: Pajunk Needle gauge: 21 G Needle length: 10 cm Needle localization: ultrasound guidance Assessment Injection assessment: negative aspiration for heme, no paresthesia on injection, incremental injection and local visualized surrounding nerve on ultrasound Paresthesia pain: none Additional Notes Mixture of 30 cc Ropi 0.5% mix with 4 mg Decaron. 10 cc was given at Adductor and 20 cc was given at Popliteal Additional Peripheral Nerve Block? no Ganga Arias MD ANESTHESIA ORDERABLES F inal Result * FL C-Arm with Images NONREPORTABLE (03/26/2025 8:43 AM EDT) Narrative IMAGING - 03/26/2025 8:45 AM EDT This procedure does not contain a result. Please see the surgeon's note for official report. Katrina Wang MD IMG FLUOROSCOPY PROCEDURES Fi nal Result IMAGING * (ABNORMAL) OR/IR Anaerobic Surgical Culture w/Gram Stain (03/26/2025 8:24 AM EDT) Only the most recent of3 resultswithin the time period is included. Culture No anaerobes isolated. 04/01/2025 12:27 PM EDT [facility] Gram Stain Moderate White Blood Cells Seen(A) 04/01/2025 12:27 PM EDT [facility] Gram Stain Few Epithelial Cells(A) 04/01/2025 12:27 PM EDT [facility] Gram Stain No organisms seen(A) 04/01/2025 12:27 PM EDT [email or web address] Tissue Bone structure of left fibula / Unknown 03/26/2025 8:24 AM EDT Comment:Pre-op diagnosis: Closed trimalleolar fracture of ankle, left, initial encounter [S82.852A] [facility] - 04/01/2025 12:27 PM EDT [facility] Received Date: MICRO NUMBER: [id number] SPECIMEN QUALITY: Adequate SOURCE: TISSUE FIBULA, LEFT STATUS: FINAL Katrina Wang MD LAB MICROBIOLOGY - GENERAL OR DERABLES Final Result [facility] [address] [facility] 3rd Floor, [place] [address], [place] [phone] [facility] [address] [facility] 3rd Floor, [place] [address], [place] [phone] * (ABNORMAL) OR/IR Aerobic Surgical Culture (03/26/2025 8:24 AM EDT) Only the most recent of3 resultswithin the time period is included. Culture Results Updated 12:32 PM EDT [facility] Culture Staphylococcus aureus(A) 04/01/2025 12:32 PM EDT [facility] Comment: This isolate demonstrates inducible clindamycin resistance. Light growth of Staphylococcus aureus Tissue Bone structure of left fibula / Unknown 03/26/2025 8:24 AM EDT Comment:Pre-op diagnosis: Closed trimalleolar fracture of ankle, left, initial encounter [S82.852A] Narrative BELINDA MCKENZIE - 04/01/2025 12:32 PM EDT [facility] Received Date:[id number] MICRO NUMBER: [id number] SPECIMEN QUALITY: Adequate SOURCE: TISSUE FIBULA, LEFT STATUS: FINAL Organism Antibiotic Method Susceptibility Staphylococcus aureus Vancomycin <=0.5: Susceptible Staphylococcus aureus Ciprofloxacin <=0.5: Susceptible Staphylococcus aureus Clindamycin NR: Resistant Staphylococcus aureus Levofloxacin 0.25: Susceptible Staphylococcus aureus Erythromycin >=8: Resistant Staphylococcus aureus Gentamicin <=0.5: Susceptible Staphylococcus aureus Oxacillin <=0.25: Susceptible Comment: Oxacillin susceptible staphylococci are susceptible to other penicillinase-stable penicillins (e.g., methicillin, nafcillin), beta- lactam/beta-lactamase inhibitor combinations, and cephems with staphylococcal indications, including cefazolin. Staphylococcus aureus Tetracycline <=1: Susceptible Staphylococcus aureus Trimethoprim + Sulfamethoxazole <=10: Susceptible Staphylococcus aureus Moxifloxacin <=0.25: Susceptible Comment: Legend: S = Susceptible I = Intermediate R = Resistant NS = Not susceptible SDD = Susceptible Dose Dependent * = Not Tested NR = Not Reported NN = See Therapy Comments Katrina Wang MD LAB MICROBIOLOGY - GENERAL OR DERABLES Final Result [facility] [address] [facility] 3rd Floor, [place] [address], [facility] [address] [facility] 3rd Floor, [place] [address], * Tissue Exam (03/26/2025 8:10 AM EDT) Final Diagnosis Soft Tissue, Left Ankle Sinus Tract: - Ulcerated skin overlying fragments of squamous-lined inflammatory granulation tissue, necroinflammatory debris, hemorrhage and marked mixed acute and chronic inflammation. - Negative for malignancy. [facility] 12:23 PM EDT [facility] at 1223 EDT Clinical History Pre-op diagnosis: Closed trimalleolar fracture of ankle, left, initial encounter [S82.852A] [facility] 08/26/202 5 12:23 PM EDT [facility] Gross Description 1. Ankle, Left Received in formalin, labeled with the patient's name, date of , medical record number, and sinus tract left ankle , are 2 muhammad-red to brown skin fragments (2.7 x 0.7 x 0.5 cm and 3.2 x 0.8 x 0.6 cm). The fragments are each bisected, and are entirely submitted in cassettes 1A and 1B. [facility] MANUAL 5 12:23 PM EDT [facility] Gross Description User Grossing complete by Tory Robles on 03/26/2025 11:18 AM [facility] MANUAL 5 12:23 PM EDT [facility] Embedded Images [facility] MANUAL 12:23 PM EDT [facility] AN[facility] LAB[facility] Resulting Agency Case was signed out at [facility], Department of Pathology, [employer] 3 [place] [id number] [facility] MANUAL 5 12:23 PM EDT [facility] AN[facility] LABOR[facility] Report Header Surgical Pathology Report Case: [id number] Authorizing Provider: Katrina Wang MD Collected: 03/26/2025 0810 Ordering Location: [facility] Received: 03/26/[address] [place] [address] Operating Room Pathologist: Sue Jackson MD Specimen: Ankle, Left, SINUS TRACT LEFT ANKLE 12:23 PM EDT [facility] Tissue Structure of left ankle / Unknown 03/26/2025 8:10 AM EDT 03/26/2025 10:00 AM EDT Comment:Pre-op diagnosis: Closed trimalleolar fracture of ankle, left, initial encounter [S87.214N] Katrina Wang MD LAB PATHOLOGY/CYTOLOGY ORDERA BLES Final Result [facility] [address] [place] [id number], [facility] ANAT[facility]OLOG[facility] LAB[facility]ORY [address] [place] [address], [place] * Protime-INR (03/26/2025 4:41 AM EDT) PT 10.2 9.6 - 12.4 Seconds 03/26/2025 5:41 AM EDT [facility] CL[facility] PATH[facility] INR 0.9 0.9 - 1.1 03/26/2025 5:41 AM EDT [facility] Comment:The optimal therapeu tic INR range for patients treated with Vitamin K antagonists (VKAS, e.g., Warfarin) is 2.0 to 3.5. Discuss the desired range with your doctor/care team. Blood Structure of peripheral vein / Unknown Venipuncture / Unknown 03/26/2025 4:41 AM EDT 03/26/2025 5:26 AM EDT Bennett Kerr MD LAB BLOOD ORDERABLES Final Result [facility] [address] [place] [address], * Type and Screen (03/26/2025 4:41 AM EDT) Pathologist Cici ABO Blood Type B 03/26/2025 6:25 AM EDT [facility] RH Type Positive 03/26/2025 6:25 AM EDT [facility] Expiration Date/Time 2025-03-29 23:59 03/26/2025 6:25 AM EDT [facility] Antibody Screen Negative 03/26/2025 6:25 AM EDT [facility] Blood Structure of peripheral vein / Unknown Venipuncture / Unknown 03/26/2025 4:41 AM EDT 03/26/2025 5:38 AM EDT Bennett Kerr MD LAB BLOOD BANK TEST ORDERAB LES Final Result [facility] [address] [place] [id number], * (ABNORMAL) Aerobic Culture w/Gram Stain (03/26/2025 2:02 AM EDT) Pathologist [facility] Culture Results Updated 9:26 AM EDT [facility] Culture Staphylococcus aureus(A) 03/30/2025 9:26 AM EDT [facility] Comment: This isolate demonstrates inducible clindamycin resistance. Light growth of Staphylococcus aureus Gram Stain Moderate White Blood Cells Seen 03/30/2025 9:26 AM EDT [facility] Gram Stain No epithelial cells seen 03/30/2025 9:26 AM EDT [facility] Gram Stain No organisms seen 03/30/2025 9:26 AM EDT [facility] Swab Structure of left ankle / Unknown 03/26/2025 2:02 AM EDT 03/26/2025 2:02 AM EDT [facility] - 03/30/2025 9:26 AM EDT [facility] Received Date: MICRO NUMBER: [id number] SPECIMEN QUALITY: Adequate SOURCE: SWAB ANKLE, LEFT STATUS: FINAL Organism Antibiotic Method Susceptibility Staphylococcus aureus Vancomycin 1: Susceptible Staphylococcus aureus Ciprofloxacin <=0.5: Susceptible Staphylococcus aureus Clindamycin NR: Resistant Staphylococcus aureus Levofloxacin 0.25: Susceptible Staphylococcus aureus Erythromycin >=8: Resistant Staphylococcus aureus Gentamicin <=0.5: Susceptible Staphylococcus aureus Oxacillin <=0.25: Susceptible Comment:Oxacillin alonso sceptible staphylococci aresusceptible to other penicillinase-stablepenicillins (e.g., methicillin, nafcillin), beta-lactam/beta-lactamase inhibitor combinations, andcephems with staphylococcal indications, includingcefazolin. Staphylococcus aureus Tetracycline <=1: Susceptible Staphylococcus aureus Trimethoprim + Sulfamethoxazole <=10: Susceptible Staphylococcus aureus Moxifloxacin <=0.25: Susceptible Comment:Legend:S = S usceptible I = IntermediateR = Resistant NS = Not susceptibleSDD = Susceptible Dose Dependent* = Not Tested NR = Not ReportedNN = See Therapy Comments Bennett Kerr MD LAB MICROBIOLOGY - GENERAL ORDERABLES Final Result [facility] [address] [facility] [address] [facility], [place] [address], [place] [phone] [facility] [address], [place] [address], * MRSA/S aureus PCR, Nasal (03/26/2025 12:51 AM EDT) Pathologist [facility] MRSA PCR, Nasal NOT DETECTED NOT DETECTED 03/26/2025 11:49 AM EDT [facility] S. aureus PCR, Nasal NOT DETECTED NOT DETECTED 03/26/2025 11:49 AM EDT [facility] Swab Nasal structure / Unknown Non-Blood Collection / Unknown 03/26/2025 12:51 AM EDT 03/26/2025 1:01 AM EDT [facility] - 03/26/2025 11:49 AM EDT [facility] Received Date:[id number] Bennett Kerr MD LAB BODY FLUIDS AND STOOLS ORDERABLES Final Result [facility] [address], [place] [address], [place] [phone] [facility] [address], [place] [address], * (ABNORMAL) CBC Auto Differential (03/26/2025 12:51 AM EDT) Pathologist [facility] WBC 6.1 3.8 - 10.8 10*3/uL 03/26/2025 1:08 AM EDT [facility] RBC 3.63(L) 3.80 - 5.10 10*6/uL 03/26/2025 1:08 AM EDT [facility] Hemoglobin 12.3 11.7 - 15.5 g/dL 03/26/2025 1:08 AM EDT [facility] Hematocrit 36.9 35.0 - 45.0 % 03/26/2025 1:08 AM EDT [facility] MCV 101.7(H) 80.0 - 100.0 fL 03/26/2025 1:08 AM EDT [facility] MCH 33.9(H) 27.0 - 33.0 pg 03/26/2025 1:08 AM EDT [facility] MCHC 33.3 32.0 - 36.0 g/dL 03/26/2025 1:08 AM EDT [facility] RDW 14.2 11.0 - 15.0 % 03/26/2025 1:08 AM EDT [facility] Platelets 414(H) 140 - 400 10*3/uL 03/26/2025 1:08 AM EDT [facility] MPV 8.8 7.5 - 12.5 fL 03/26/2025 1:08 AM EDT [facility] Neutrophil % 55.2 % 03/26/2025 1:08 AM EDT [facility] Immature Grans % 0.7 0.0 - 0.9 % 03/26/2025 1:08 AM EDT [facility] Lymphocyte % 30.3 % 03/26/2025 1:08 AM EDT [facility] Monocyte % 10.5 % 03/26/2025 1:08 AM EDT [facility] Eosinophil % 2.5 % 03/26/2025 1:08 AM EDT [facility] Basophil % 0.8 % 03/26/2025 1:08 AM EDT [facility] Neutrophil # 3.36 1.50 - 7.80 10*3/uL 03/26/2025 1:08 AM EDT [facility] Immature Grans # 0.04(H) <=0.03 10*3/uL 03/26/2025 1:08 AM EDT [facility] Lymphocyte # 1.80 0.85 - 3.90 10*3/uL 03/26/2025 1:08 AM EDT [facility] Monocyte # 0.60 0.20 - 0.95 10*3/uL 03/26/2025 1:08 AM EDT [facility] Eosinophil # 0.20 0.02 - 0.50 10*3/uL 03/26/2025 1:08 AM EDT [facility] Basophil # 0.10 0.00 - 0.20 10*3/uL 03/26/2025 1:08 AM EDT [facility] nRBC % 0.0 /100 WBCs 03/26/2025 1:08 AM EDT [facility] nRBC # <0.01 <0.01 10*3/uL 03/26/2025 1:08 AM EDT [facility] Blood Structure of peripheral vein / Unknown Venipuncture / Unknown 03/26/2025 12:51 AM EDT 03/26/2025 1:00 AM EDT Bennett Kerr MD LAB BLOOD ORDERABLES Final Result Performing Organization Address City/State/[facility] Co de Phone Number [facility] [address] [place] [address], * (ABNORMAL) Sedimentation Rate (03/26/2025 12:51 AM EDT) Sed Rate 63(H) <30 mm/Hr mm/Hr 03/26/2025 1:07 AM EDT [facility] Blood Structure of peripheral vein / Unknown Venipuncture / Unknown 03/26/2025 12:51 AM EDT 03/26/2025 1:00 AM EDT Bennett Kerr MD LAB BLOOD ORDERABLES Final Result Performing Organization Address City/[facility]/ZIP Co de Phone Number [facility] [address] [place] [address], [place] * (ABNORMAL) C-Reactive Protein (03/26/2025 12:51 AM EDT) C Reactive Protein 44.8(H) <=9.9 mg/L 03/26/2025 1:32 AM EDT [facility] Blood Structure of peripheral vein / Unknown Venipuncture / Unknown 03/26/2025 12:51 AM EDT 03/26/2025 1:00 AM EDT us Bennett Kerr MD LAB BLOOD ORDERABLES Final Result Performing Organization Address [facility] Co de Phone Number [facility] [address] [place] [address], [place] * XR Ankle 3+ vw Left Weight Bearing (03/24/2025 3:08 PM EDT) Only the most recent of2 resultswithin the time period is included. Anatomical Region Laterality Modality Lower Extremities, Ankle Left Compute d Radiography 03/25/2025 10:2 3 AM EDT Impressions 03/25/2025 10:26 AM EDT Prior open reduction internal fixation of the healed trimalleolar fractures. Unchanged alignment. Hardware remains intact. No radiographic evidence of hardware related complication. The mortise is maintained. Similar postsurgical changes of posterior soft tissue of the ankle. If this radiology report contains a blank impression section, it is an incomplete radiology report. Please contact the interpreting radiologist or applicable radiology division as soon as possible to obtain the completed interpretation. Workstation ID: [id number] Narrative 03/25/2025 10:26 AM EDT COMPARISON: 01/29/2025 FINDINGS AND Resulting Agency Comment [id number] Procedure Note Deuce Acharya, DO - 03/25/2025 COMPARISON: 01/29/2025 FINDINGS AND IMPRESSION: Prior open reduction internal fixation of the healed trimalleolarfractures. Unchanged alignment. Hardware remains intact. No radiographicevidence of hardware related complication. The mortise is maintained.Similar postsurgical changes of posterior soft tissue of the ankle. If this radiology report contains a blank impression section, it is anincomplete radiology report. Please contact the interpreting radiologistor applicable radiology division as soon as possible to obtain thecompleted interpretation. Workstation ID: [id number] us Kenia Oneil CARDIAC SURGEON IMG XR PROCEDURES Final Result * [facility] Pap w/HPV, mRNA E6/E7, Reflex 16/18/45 (02/10/2024 4:06 PM EDT) [facility] TIS, mRNA E6/E7 Yasmin See Below [facility] Comment: TIS,mRNA E6/E7 YASMIN CLINICAL INFORMATION: None given LMP: NONE GIVEN PREV. PAP: NONE GIVEN PREV. BX: NONE GIVEN SOURCE: Cervix, Endocervix STATEMENT OF ADEQUACY: Satisfactory for evaluation. Endocervical/transformation zone component present. INTERPRETATION/RESULT: Cytology Results: Negative for intraepithelial lesion or malignancy. COMMENT: This Pap test has been evaluated with computer assisted technology. POST MANAGER: KENDRA SIMMONS(ASCP) CT screening location: [place] [address] HPV mRNA E6/E7 Not Detected REFERENCE RANGE: Not Detected Methodology: Reception-Mediated Amplification This assay detects E6/E7 viral messenger RNA (mRNA) from 14 high-risk HPV types (16,18,31,33,35,39,45,51,52,56,58,59,66,68). Cervical sources are required for HPV testing. If a vaginal source from a patient who has had a total hysterectomy with removal of cervix was submitted, please contact the testing laboratory for alternative testing options. For additional information, please refer to http://education.Shopzilla.[employer] Outdoor/faq/EDN933q7 (This link if provided for information/ educational purposes only.) EXPLANATORY NOTE: The Pap is a screening test for cervical cancer. It is not a diagnostic test and is subject to false negative and false positive results. It is most reliable when a satisfactory sample, regularly obtained, is submitted with relevant clinical findings and history, and when the Pap result is evaluated along with historic and current clinical information. Brushing Cervix uteri structure / Unknown 02/10/2024 4:06 PM EDT Eli Leo MD LAB [facility] O RDERABLES Final Result [facility] [address] [facility] 3rd Floor, [place] [address], [place] [phone] [facility] [address] [place] [address] from Last 3 Months or Most Recently Relevant to Health Maintenance Insurance [facility] Advance Directives Documents on File Type Date Recorded Patient Facing Baster Expl anation Health Care Proxy 01/09/2023 8:03 AM Dave Cantu 2022 Healthcare Agents on File Name Relationship Healthcare Agent Relationshi p Communication Dave Cantu Spouse Health Care Agent Care Teams Mammal Control Agent Relationship Specialty Start Date End Date Rachel Romo MD [address] [place] [phone] PCP - General Family Medicine 08/02/21
--- OUTSIDE RECORDS SUMMARY | 2025-04-15 19:19 | XMS_ITS | Patient Health Record ---
Author Organization [facility] Address [address] [facility] [address] [place] [address] Care Team Providers Care Weld Technician Name Role Phone VIDA AVILES, [facility] Primary Care Provider UnavailBrissa Javier Unavailable [phone] Migration, Provider Unavailable Unavailable Reason For Referral No Information Medications Medication SIG (Take, Route, Frequency, Duration) [...] Active Encounters Encounter Location Date Provider Diagnosis [facility] [address] [address] 12/12/2024 Provider Migration Plan Of Treatment No Information Insurance Providers Payer Name Payer Address Payer Phone Subscriber Number Group Number Insured Name Patient Relationship to Insured Coverage Start Date Coverage End Date [facility] [address] [place] [id number] [phone] [id number] ELI TELLEZ Spouse - patient is the spouse of the insured
--- OUTSIDE RECORDS SUMMARY | 2025-04-15 19:19 | XMS_ITS | Encounter Summary ---
Author Organization [facility] Address [address] [place] [address] Care Team Providers Care Bakery Chef Name Role Phone Rachel Romo MD Primary Care Provider [phone] Encounter Details Date Type Department Care Team (Latest Contact Info) Description 08/02/2021 Transcribe Orders [facility]- [address] [place] [address] [address] [place] [phone] Rachel Romo MD [address] [place] [phone] Contact with and (suspected) exposure to covid-19 (Primary Dx) Social History Tobacco Use Types Packs/Day Years Used Date Smoking Tobacco: Never Assessed Comments Unknown Sex and Gender Information Value Date Recorded Sex Assigned at Female 11/19/2022 8:44 AM EDT Legal Sex Female 3:56 AM EDT Gender Identity Female 11/19/2022 8:44 AM EDT Sexual Orientation Straight 11/19/2022 8: 44 AM EDT documented as of this encounter Plan of Treatment Upcoming Encounters Date Type Department Care Team (Late st Contact Info) Description 04/20/2025 3:30 PM EDT Follow-Up [facility] [address] [place], [place] [phone] Eli Ba PA [address] [place], [place] [phone] 04/23/2025 1:00 PM EDT Follow-Up [facility]le [facility] [address] [place] [address] Sage Candelaria MD [address] [place] [address] 04/26/2025 3:45 PM EDT Office Visit [facility] communication skills instructor [address] [place] [address] Eli Leo MD [address] [place] [phone] documented as of this encounter Results * Due to [place] state law, this organization might not be sharing negative HIV tests. * (ABNORMAL) COVID-19 PCR (Symptomatic), CRUTCHER HELPER/OP/Saliva (08/02/2021 10:12 AM EST) SARS CoV 2 RNA, RT PCR Detected( A) Not Detected Balak[facility] STUDIO 08/02/2021 9:46 PM EST [facility] Comment:A Detected (Positive ) test result is indicative of the presence of SARS-CoV-2 RNA, and the patient is considered infected with the virus. This test can remain positive beyond the time that a patient is presumed to be contagious, and clinical correlation with patient history and other diagnostic information is necessary to determine a patients' contagious status. Positive results do not rule out bacterial infection or co-infection with other viruses. The agent detected may not be the definite cause of disease. Saliva Mouth region structure / Unknown Non-Blood Collection / Unknown 08/02/2021 10:12 AM EST 08/02/2021 12:05 PM EST [facility] - 08/02/2021 9:46 PM EST These tests were developed, validated, and their performance characteristics determined by the Molecular Virology Laboratory at [facility] under CLIA [id number]. They have not been cleared or approved by the U.S. Food and Drug Administration (FDA). FDA Policy for Diagnostic Tests for Coronavirus Disease-2019 during the Public Health Emergency issued October 19, 2019, is followed. Rachel Romo MD LAB BODY FLUIDS AND STOOLS ORDER KARY Final Result [facility] [address] [place] [address], documented in this encounter Visit Diagnoses Diagnosis Contact with and (suspected) exposure to covid-19- Primary documented in this encounter Additional Health Concerns Infection Onset Date Last Indicated Resolved Time COVID-19 - Suspected infection 08/02/2021 08/02/2021 08/02/2021 9:46 PM EST COVID-19 - Confirmed infection 08/02/2021 08/02/2021 09/27/2021 10:32 PM EST documented as of this encounter Care Teams Bakery Chef Relationship Specialty Start Date End Date Rachel Romo MD [address] [place] [phone] PCP - General Family Medicine 08/02/21 documented as of this encounter
--- OUTSIDE RECORDS SUMMARY | 2025-04-15 19:19 | XMS_ITS | Encounter Summary ---
Author Organization [facility] Address [address] [place] [address] Care Team Providers Care Code Enforcement Supervisor Name Role Phone Rachel Romo MD Primary Care Provider [phone] Encounter Details Date Type Department Care Team (Late st Contact Info) Description 03/25/2025 myChart Message [facility] [address] [place] [address] Kenia Oneil NP [address] [place], [place] [phone] Ankle Today Social History Tobacco Use Types Packs/Day Years [...] money to get more. Never true 03/26/2025 [facility] Utilities Answer Date Recorded In the past [...] Info) Description 04/20/2025 3:30 PM EDT Follow-Up [facility] [address] [place] [address] Eli Ba PA [address] [place] [address] 04/23/2025 1:00 PM EDT Follow-Up [facility] [address] [place] [address] Sage Candelaria MD [address] [place] [phone] 04/26/2025 3:45 PM EDT Office Visit [facility] news broadcaster [address] [place] [address] Eli Leo MD [address] [place] [phone] documented as of this encounter Visit Diagnoses Not on filedocumented in this encounter Care Teams Code Enforcement Supervisor Relationship Specialty Start Date End Date Rachel Romo MD [address] [place] [phone] PCP - General Family Medicine 08/02/21 documented as of this encounter
--- OUTSIDE RECORDS SUMMARY | 2025-04-15 19:19 | XMS_ITS | Encounter Summary ---
Author Organization [facility] Address [address] [place] [address] Care Team Providers Care Card Game Operator Name Role Phone Rachel Romo MD Primary Care Provider Encounter Details Date Type Department Care Team (Late st Contact Info) Description 03/24/2025 myChart Message [facility] [address] [place] [address] Kenia Oneil NP [address] [place] [address] Ankle Irritated Social History Tobacco Use Types Packs/Day Years [...] money to get more. Never true 03/26/2025 [facility] Utilities Answer Date Recorded In the [...] Info) Description 04/20/2025 3:30 PM EDT Follow-Up [facility] [address] [place] [address] Eli Ba PA [address] [place] [address] 04/23/2025 1:00 PM EDT Follow-Up [facility] [address] [place] [address] Sage Candelaria MD [address] [place] [phone] 04/26/2025 3:45 PM EDT Office Visit [facility] cloth mercerizer operator [address] [place] [address] Eli Leo MD [address] [place] [phone] documented as of this encounter Visit Diagnoses Not on filedocumented in this encounter Care Teams Card Game Operator Relationship Specialty Start Date End Date Rachel Romo MD [address] [place] [phone] PCP - General Family Medicine 08/02/21 documented as of this encounter
--- OUTSIDE RECORDS SUMMARY | 2025-04-15 19:19 | XMS_ITS | Encounter Summary ---
Author Organization [facility] Address [address] [place] [address] Care Team Providers Care Static Balancer Name Role Phone Rachel Romo MD Primary Care Provider [phone] Encounter Details Date Type Department Care Team (Late st Contact Info) Description 03/25/2025 Orders Only [facility] Interventional Radiology [address] [place], [place] [phone] Kamaljit Mejia MD [address] [facility] Internal Medicine [place], [place] [phone] Social History Tobacco Use Types Packs/Day Years [...] money to get more. Never true 03/26/2025 [facility] Utilities Answer Date Recorded In [...] Info) Description 04/20/2025 3:30 PM EDT Follow-Up [facility] [address] [place] [address] Eli Ba PA [address] [place] [phone] 04/23/2025 1:00 PM EDT Follow-Up [facility] [address] [place] [address] Sage Candelaria MD [address] [place] [phone] 04/26/2025 3:45 PM EDT Office Visit [facility] civil engineering project designer [address] [place] [address] Eli Leo MD [address] [place] [phone] documented as of this encounter Visit Diagnoses Not on filedocumented in this encounter Care Teams Static Balancer Relationship Specialty Start Date End Date Rachel Romo MD [address] [place] [phone] PCP - General Family Medicine 08/02/21 documented as of this encounter
--- OUTSIDE RECORDS SUMMARY | 2025-04-15 19:19 | XMS_ITS | Clinical Summary ---
Author Organization [facility] [employer] [facility] Address [address] [facility] [place] [address] Care Team Providers Care Emergency Management Consultant Name Role Phone Unavailable Primary Care Provider Unavailabl e Allergies No known active allergies Medications cromolyn (OPTICROM) 4 % ophthalmic solution cromolyn 4 % eye drops INSTILL 1 DROP INTO AFFECTED EYE(S) BY OPHTHALMIC ROUTE 4 TIMES PER DAY Active polymyxin B sulf-trimethopr im (Polytrim) 10,000 unit- 1 mg/mL drop Polytrim 10,000 unit-1 mg/mL eye drops INSTILL 1 DROP INTO AFFECTED EYE(S) BY OPHTHALMIC ROUTE EVERY 6 HOURS Active Social History Tobacco Use Types Packs/Day Years Used Date Smoking Tobacco: Never Assessed Comments Unknown Sex and Gender Information Value Date Recorded Sex Assigned at Not on file Legal Sex Female 3:23 PM EST Gender Identity Not on file Sexual Orientation Not on file Last Filed Vital Signs Vital Sign Reading Time Taken Comments Blood Pressure - - Pulse 114 08/31/2020 3:04 PM EST Temperature 35.8 C (96.4 F) 08/31/2020 3:04 PM EST Respiratory Rate - - Oxygen Saturation 97% 08/31/2020 3:04 PM EST Inhaled Oxygen Concentration - - Weight - - Height - - Body Mass Index - - Plan of Treatment Health Maintenance Due Date Last Done Comments Colorectal Cancer: [place] PY Screening every 10 yrs (or Modifier) 1969 Depression: Screening Annual ly using PHQ-2/9 in Adults 18 yrs or above (or HM Modifier)([facility]) 12/02/1987 Hepatitis C Virus Infection in Adolescents and Adults: Screening (or Modifier) ([facility]) 12/02/1987 [facility] Screening Reminder: Barbara delgado for all adults ([facility]) 12/02/1987 Tobacco Smoking Cessation: i n Adults excluding Women: Behavioral and Pharmacotherapy Interventions ([facility]) 12/02/1987 Cervical Cancer Screenin 1-65 yrs of age (or Modifier) 1990 Cervical Cancer Screening: P ap every 3 yrs pts age 21-65 1990 Cervical Cancer: Pap Screeni ng with Modifier timing ([facility]) 1990 Cervical Cancer: hrHPV alone or with cotesting Pap for Pts 30-65yrs screening every 5yrs ([facility]) 1990 DTaP/Tdap/Td Vaccines ([facility]) (1 - Tdap) 04/20/1999 Colorectal Cancer Screening 45 -75 Yrs (or HM Modifier) 2014 Colorectal Cancer: FLEXIBLE SIGMOIDOSCOPY Screening every 5 yrs 2014 Colorectal Cancer: Fecal Imm unochemical Test (FIT) Annually [facility] 2014 Colorectal Cancer: High-sens itivity gFOBT Screening Annually [facility] 2014 Colorectal Cancer: Stool Col oguard Screening every 3 yrs 2014 Colorectal Cancer:CT Colonog padmini Screening every 5 yrs 2014 Breast Cancer: Screening Barbara ually age 50-74 yrs (or HM Modifier)([facility]) 12/02/2019 Pneumococcal Vaccination Scr eening: Patients 50+ yrs of age ([facility]) (1 of 1 - PCV) 12/02/2019 Zoster/Shingles Vaccine Seri es Screening: Adults aged 18+ yrs (or HM Modifiers)([facility]) (1 of 2) 12/02/2019 Flu Vaccination: Yearly for ages 18mos through 64 years (or Modifier)([facility]) 03/05/2025 [employer] Devices Not on file Insurance
[2025-04-15 19:26] LABS: MANUAL DIFF FLAG NO
[2025-04-15 19:48] LABS: Hematocrit 33.6 % (37.0-47.0); Hemoglobin 11.3 g/dl (12.0-16.0); Imm Gran Abs Auto 0.01 X10*3/uL (0.00-0.03); Imm Gran Pct Auto 0.2 % (0.0-0.4); Lymphocytes Absolute Auto 1.6 X10*3/uL (1.2-4.9); Mean Corpuscular HGB Conc 33.6 g/dl (31.0-35.0); Mean Corpuscular Hemoglobin 34.2 pg (27.0-33.0); Mean Corpuscular Volume 101.8 fL (80.0-98.0); NRBC Abs Auto 0.000 X10*3/uL (0.0-0.012); NRBC Pct Auto 0.0 /100WBC (0.0-0.2); Platelet Count 383 X10*3/uL (160-400); Red Blood Count 3.30 X10*6/uL (4.20-5.50); White Blood Count 5.2 X10*3/uL (4.8-10.8)
[2025-04-15 19:58] LABS: Alanine Aminotransferase 9 U/L (0-31); Albumin Level 4.7 g/dL (3.5-5.0); Alkaline Phosphatase 45 U/L (39-117); Anion Gap 15 (12-20); Aspartate Amino Transferase 26 U/L (5-31); Blood Urea Nitrogen 20 mg/dL (9-16); Calcium 9.1 mg/dL (8.4-10.2); Carbon Dioxide 23 mmol/L (22-29); Chloride 105 mmol/L (96-108); Estimated Glomerular Filt Rate > 60; Potassium 3.9 mmol/L (3.3-5.1); Sodium 139 mmol/L (135-145); Total Protein 7.3 g/dL (6.5-8.0)
== END 2025-04-15 19:08 | disposition home or self-care (01) ==
LOC: HO.LNP 19:07
PROVIDERS: Visit Provider Student in an Organized Health Care Education/Training Program
DX: T84.69XA Infection and inflammatory reaction due to internal fixation device of other site, initial encounter (principal)
CPT/HCPCS: 80053; 85025